=== PATIENT | female | born 1940 | race Caucasian/White ===

== ENCOUNTER 2016-03-27 00:12 | Day surgery (SDC) | payer MEDICARE, OTHER ==
[~2016-03-27 00:12] MED LIST: AMLO-39 PO; BUPR150T6 PO; DIT5 PO; GABA600T PO; IND40 PO; MORP15TA4 PO; OMEP20TA86 PO; POLY17PO13 PO; VALA1000 PO; ZES20 PO; [UNRECOGNIZED DRUG - CODE] PO; amitiza PO; restasis OU
[2016-03-27] MEDS ORDERED: Lactated Ringer's 1,000 ML IV ONE (06:00)
== END 2016-03-27 23:59 | disposition home or self-care (01) ==
LOC: END 00:12
PROVIDERS: ATTEND Internal Medicine Gastroenterology
DX: K59.00 Constipation, unspecified (principal)